=== PATIENT | female | born 1955 ===

== ENCOUNTER 2017-07-12 09:49 | Emergency (ER) | payer OTHER ==
[2017-07-12 09:49] VITALS: BMI 34.9
[2017-07-12 10:09] VITALS: TEMP 98.5; O2SAT 98
[2017-07-12] MEDS ORDERED: Sodium Chloride 0.9% 500 ML IV ONE ×2 (11:16→12:23)
[2017-07-12 11:57] LABS: BASO % 0.3 % (0.0-2.0); EOS # 0.1 K/uL (0.0-0.7); EOS % 1.8 % (0.0-4.0); HEMOGLOBIN 11.4 g/dL (11.0-16.0); LYMPH # 0.6 K/uL (1.0-4.3); LYMPH % 7.6 % (20.0-40.0); MEAN CELL VOLUME 81.9 fL (81.0-99.0); MEAN CORPUSCULAR HEMOGLOBIN 27.8 pg (27.0-31.0); MEAN CORPUSCULAR HGB CONC 33.9 g/dL (33.0-37.0); MONO # 0.3 K/uL (0.0-0.8); MONO % 3.6 % (0.0-10.0); NEUT # 6.7 K/uL (1.8-7.0); NEUT % 86.7 % (50.0-75.0); PLATELET COUNT 161 K/uL (130-400); RBC 4.12 Mil/uL (3.80-5.20); WHITE BLOOD COUNT 7.7 K/uL (4.8-10.8)
[2017-07-12 12:15] LABS: ALB/GLOB RATIO 1.1 (1.0-2.1); ALBUMIN 4.5 g/dL (3.5-5.0); ALT/SGPT 124 U/L (9-52); AST/SGOT 66 U/L (14-36); BLOOD UREA NITROGEN 14 mg/dL (7-17); CALCIUM 9.3 mg/dl (8.6-10.4); GFR AFRICAN-AMERICAN > 60; GFR NON-AFRICAN AMERICAN > 60; LIPASE 37 U/L (23-300)
[2017-07-12 12:29] LABS: VENOUS BLOOD GAS BASE EXCESS 1.7 mmol/L (0.0-2.0); VENOUS BLOOD GAS PCO2 42 mmHg (40-60); VENOUS BLOOD GAS PO2 26 mm/Hg (30-55); VENOUS BLOOD PH 7.41 (7.32-7.43)
--- NOTE | 2017-07-12 12:33 | RAD ---
PROCEDURE: CHEST RADIOGRAPH, 1 VIEW HISTORY: Abdominal pain COMPARISON: None available. FINDINGS: LUNGS: The lungs are well inflated and clear. PLEURA: No pneumothorax or pleural fluid seen. CARDIOVASCULAR: Normal. OSSEOUS STRUCTURES: No significant abnormalities. VISUALIZED UPPER ABDOMEN: Normal. OTHER FINDINGS: None. IMPRESSION: No active pulmonary disease.
[2017-07-12 12:35] LABS: ANISOCYTOSIS SLIGHT; BANDS 8 % (0-2); EOSINOPHIL 4 % (0-4); LYMPHOCYTE 9 % (20-40); MONOCYTE 4 % (0-10); NEUTROPHIL 75 % (50-75); PLATELET ESTIMATE NORMAL (NORMAL); TOTAL CELLS COUNTED 100
[2017-07-12 12:42] LABS: SQUAMOUS EPITHIAL 1 /hpf (0-5); URINE BILIRUBIN NEGATIVE (NEGATIVE); URINE BLOOD NEGATIVE (NEGATIVE); URINE CLARITY Clear (Clear); URINE COLOR Yellow (YELLOW); URINE GLUCOSE (UA) NORMAL (Normal); URINE LEUKOCYTE ESTERASE NEG Leu/uL (Negative); URINE PROTEIN NEGATIVE (NEGATIVE); URINE UROBILINOGEN NORMAL mg/dL (0.2-1.0)
--- NOTE | 2017-07-12 13:02 | C.PDOC ---
History Of Present Illness 62-year-old female presents to the ED complaining of UTI symptoms, occurring intermittently for the past several weeks. States she has been treated outpatient with various antibiotics over the past 2-3 months. However, patient reports over the past 2-3 days she has developed fever, chills, and abdominal pain that is described as diffuse and non-radiating. Also states that today she noticed her skin changed color, and began to look green and yellow. Denies any vomiting, diarrhea, recent travel, hematuria, chest pain, or SOB. Time Seen by Provider: 07/12/17 10:26 Chief Complaint (Nursing): Abdominal Pain History Per: Patient History/Exam Limitations: no limitations Onset/Duration Of Symptoms: Intermittent Episodes Current Symptoms Are (Timing): Still Present Associated Symptoms: Fever, Chills, Urinary Symptoms Past Medical History Reviewed: Historical Data, Nursing Documentation, Vital Signs Vital Signs: Last Vital Signs Temp 98.5 F 07/12/17 10:04 Pulse 70 07/12/17 16:39 Resp 16 07/12/17 16:39 BP 125/85 07/12/17 16:39 Pulse Ox 98 07/12/17 17:11 - Medical History PMH: Arthritis, Colonic Polyps, HTN Denies: Chronic Kidney Disease Surgical History: Endoscopy - [facility] Procedures ESOPHAGOGASTRODUODENOSCOPY [EGD] W/CLOSED BIOPSY (07/03/13) Family History: States: No Known Family Hx - Social History Hx Alcohol Use: No Hx Substance Use: No - Immunization History Hx Tetanus Toxoid Vaccination: No Hx Influenza Vaccination: Yes (10/2016) Hx Pneumococcal Vaccination: No Review Of Systems Except As Marked, All Systems Reviewed And Found Negative. Constitutional: Positive for: Fever, Chills Cardiovascular: Negative for: Chest Pain Respiratory: Negative for: Shortness of Breath Gastrointestinal: Positive for: Abdominal Pain. Negative for: Vomiting, Diarrhea Genitourinary: Positive for: Dysuria, Frequency. Negative for: Hematuria Physical Exam - Physical Exam Appears: Non-toxic, No Acute Distress Skin: Warm, Dry, Jaundice Head: Atraumatic, Normacephalic Eye(s): bilateral: Normal Inspection, PERRL, EOMI Oral Mucosa: Moist Throat: No Erythema, No Exudate Neck: Normal ROM, Supple Chest: Symmetrical Cardiovascular: Rhythm Regular, No Murmur Respiratory: Normal Breath Sounds, No Accessory Muscle Use Gastrointestinal/Abdominal: Soft, Tenderness (mid-abdominal diffuse tenderness) , Distention (mild) Back: Normal Inspection, No CVA Tenderness, No Vertebral Tenderness Extremity: Normal ROM, Pedal Edema (1+ edema bilaterally), No Calf Tenderness, No Deformity Pulses: Left Dorsalis Pedis: Normal, Right Dorsalis Pedis: Normal Neurological/Psych: Oriented x3, Normal Speech, Normal Motor Gait: Steady ED Course And Treatment - Laboratory Results Result Diagrams: 07/12/17 11:51 07/12/17 11:51 O2 Sat by Pulse Oximetry: 98 (RA) Pulse Ox Interpretation: Normal - CT Scan/US CT ABD/PELVIS Other Rad Studies (CT/US): Read By Radiologist, Radiology Report Reviewed CT/US Interpretation: FINDINGS: LOWER THORAX: Unremarkable. LIVER: Normal size and contour. Innumerable low-density rounded masses throughout the consistent with cysts. This was previously demonstrated on ultrasound examination of 07/01/2017. These are grossly unchanged from prior CT examination of 07/26/2013. No biliary ductal dilatation. . GALLBLADDER AND BILE DUCTS: Unremarkable. PANCREAS: Unremarkable. No gross lesion or ductal dilatation. SPLEEN: Unremarkable. ADRENALS: Unremarkable. No mass. KIDNEYS AND URETERS: Innumerable bilateral renal cortical cysts. Largest in the right kidney is in the upper pole, measuring approximately 8.4 cm in greatest dimension. Largest in the left kidney is in the upper pole, measuring approximately 8.0 cm in greatest dimension. No calculus. No hydronephrosis. VASCULATURE: Unremarkable. No aortic aneurysm. BOWEL: Sigmoid diverticulosis. No evidence of diverticulitis. No bowel obstruction. APPENDIX: Normal appendix. PERITONEUM: Unremarkable. No free fluid. No free air. LYMPH NODES: Shotty subcentimeter retroperitoneal and pelvic lymph nodes. No bulky lymphadenopathy. BLADDER: Unremarkable. REPRODUCTIVE: Normal uterus. Prominent left parauterine veins, possibly variceal. Please correlate with any clinical suspicion of pelvic congestion syndrome. BONES: No acute fracture. OTHER FINDINGS: None. IMPRESSION: Findings consistent with adult polycystic kidney disease. Innumerable hepatic cysts. No evidence of pyelonephritis. No evidence of urinary tract obstruction. Dilated left parauterine veins, uncertain significance. Medical Decision Making Medical Decision Making: Time: 11:16 Initial Plan: * CMP * CBC * Lipase * Troponin I * UA * Urine culture * VBG * Chest x-ray * IV fluids * CT Abd/Pelvis w/ IV contrast Labs reviewed: 8 bands, WBC is wnl. On re-exam, the patient reports improvement of symptoms. Lungs are CTA, heart is RRR, abdomen is soft, non-tender and the patient is tolerating PO well. Ambulatory in the Ed with steady gait. Follow up with the medical doctor within 1-2 days. Return if worsend. Patient informed of CT findings. Stable for d/c home. Advised patient to follow up with PMD. Disposition - Disposition Referrals: Donato Figueroa MD [Staff Provider] - Disposition: HOME/ ROUTINE Disposition Time: 16:25 Condition: FAIR Additional Instructions: Follow up with the medical doctor within 1-2 days. Return if worsend. Prescriptions: Famotidine [Pepcid] 20 mg PO BID #20 tab Ibuprofen [Motrin] 1 tab PO TID PRN #30 tab PRN Reason: Pain Instructions: Stomach Ache and Stomach Upset Forms: [employer] ([employer]) - Clinical Impression Clinical Impression: Abdominal pain - PA / [employer] / Resident Statement MD/DO has reviewed & agrees with the documentation as recorded. - Scribe Statement The provider has reviewed the documentation as recorded by the Scribe (Nelda Uriarte) All medical record entries made by the Scribe were at my direction and personally dictated by me. I have reviewed the chart and agree that the record accurately reflects my personal performance of the history, physical exam, medical decision making, and the department course for this patient. I have also personally directed, reviewed, and agree with the discharge instructions and disposition.
[2017-07-12] MEDS ORDERED: Iodixanol 320 MG/ML 100 ML BOTTLE IV ONE (13:55)
--- NOTE | 2017-07-12 15:12 | CT ---
PROCEDURE: CT Abdomen and Pelvis with contrast HISTORY: abd pain, flank pain r/o pyeloneph COMPARISON: None. TECHNIQUE: Contrast dose: 100 mL Visipaque 320 Radiation dose: Total exam DLP = 980.33 mGy-cm. This CT exam was performed using one or more of the following dose reduction techniques: Automated exposure control, adjustment of the mA and/or kV according to patient size, and/or use of iterative reconstruction technique. FINDINGS: LOWER THORAX: Unremarkable. LIVER: Normal size and contour. Innumerable low-density rounded masses throughout the consistent with cysts. This was previously demonstrated on ultrasound examination of 07/01/2017. These are grossly unchanged from prior CT examination of 07/26/2013. No biliary ductal dilatation. . GALLBLADDER AND BILE DUCTS: Unremarkable. PANCREAS: Unremarkable. No gross lesion or ductal dilatation. SPLEEN: Unremarkable. ADRENALS: Unremarkable. No mass. KIDNEYS AND URETERS: Innumerable bilateral renal cortical cysts. Largest in the right kidney is in the upper pole, measuring approximately 8.4 cm in greatest dimension. Largest in the left kidney is in the upper pole, measuring approximately 8.0 cm in greatest dimension. No calculus. No hydronephrosis. VASCULATURE: Unremarkable. No aortic aneurysm. BOWEL: Sigmoid diverticulosis. No evidence of diverticulitis. No bowel obstruction. APPENDIX: Normal appendix. PERITONEUM: Unremarkable. No free fluid. No free air. LYMPH NODES: Shotty subcentimeter retroperitoneal and pelvic lymph nodes. No bulky lymphadenopathy. BLADDER: Unremarkable. REPRODUCTIVE: Normal uterus. Prominent left parauterine veins, possibly variceal. Please correlate with any clinical suspicion of pelvic congestion syndrome. BONES: No acute fracture. OTHER FINDINGS: None. IMPRESSION: Findings consistent with adult polycystic kidney disease. Innumerable hepatic cysts. No evidence of pyelonephritis. No evidence of urinary tract obstruction. Dilated left parauterine veins, uncertain significance.
[2017-07-12 16:40] VITALS: BP 125/85; PULSE 70; RESP 16
== END 2017-07-12 16:39 | disposition home or self-care (01) ==
LOC: C.ER 09:49
DX: R10.9 Unspecified abdominal pain (principal); I10 Essential (primary) hypertension
CPT/HCPCS: 71045; 74177; 80053; 81001; 82803; 83690; 84484; 85025; 87086; 96360; 99285; J7040; Q9967